=== PATIENT | female | born 1985 ===

== ENCOUNTER → 2023-06-24 | Outpatient (CLI) | payer OTHER ==
[~2023-06-24] MED LIST: Jolessa1 EACH PO; ORACON; TRAZ100 PO
== END ==
LOC: LAB 17:13 → LAB SHORT 17:13
DX: R30.0 Dysuria (principal)
CPT/HCPCS: 87086

== ENCOUNTER → 2023-11-23 | Outpatient (CLI) | payer OTHER ==
[2023-12-01 15:37] LABS: HPV HIGH RISK BY TMA Not Detected; HPV SOURCE Cervical
== END | disposition home or self-care (01) ==
LOC: LAB 17:37 → LAB SHORT 17:37
PROVIDERS: Family Medicine
DX: Z12.4 Encounter for screening for malignant neoplasm of cervix (principal)
CPT/HCPCS: 87624; G0123